=== PATIENT | male | born 1950 | race Caucasian/White ===

== ENCOUNTER 2019-08-02 19:48 | Emergency (ER) | payer MEDICARE ==
--- NOTE | 2019-08-02 22:08 | ULT ---
US Venous Doppler Lt Unilat HISTORY: Left leg pain and swelling. COMPARISON: None. FINDINGS: Real-time color Doppler evaluation left lower extremity was performed from groin to calf. T his includes evaluation the common femoral, superficial and profunda femoral, saphenous, popliteal and posterior tibial veins. This shows a patent deep venous system. There is normal compressibility and augmentation. IMPRESSION: No evidence of DVT of the left lower extremity.
== END 2019-08-02 22:10 | disposition home or self-care (01) ==
LOC: SCSER 19:48
DX: L03.116 Cellulitis of left lower limb (principal); I25.10 Atherosclerotic heart disease of native coronary artery without angina pectoris; F32.9 Major depressive disorder, single episode, unspecified; E78.5 Hyperlipidemia, unspecified; E78.00 Pure hypercholesterolemia, unspecified; E11.9 Type 2 diabetes mellitus without complications; I10 Essential (primary) hypertension; Z87.891 Personal history of nicotine dependence; Z79.82 Long term (current) use of aspirin; Z79.899 Other long term (current) drug therapy; Z79.01 Long term (current) use of anticoagulants

== ENCOUNTER 2020-04-29 08:45 | Outpatient (CLI) | payer MEDICARE, OTHER ==
[2020-04-29 12:07] LABS: #Eosinphils 0.1 thou/uL (0.0-0.7); #Lymphocytes 1.1 thou/uL (1.20-3.40); #Monocytes 0.5 thou/uL (0.11-0.59); #Neutrophils 3.6 thou/uL (1.40-6.50); %Basophils 0.2 % (0.0-1.0); %Eosinophils 1.3 % (0.0-10.0); %Lymphocytes 20.7 % (21.0-51.0); %Monocytes 9.2 % (0.0-10.0); %Neutrophils 68.5 % (42.0-75.0); Hemoglobin 13.8 g/dL (14.0-18.0); Mean Corpuscular HGB CONC 31.3 g/dL (32.0-36.0); Mean Corpuscular Hemoglobin 26.7 pg (27.0-31.0); Mean Corpuscular Volume 85.1 fL (78.0-98.0); Mean Platelet Volume 7.8 fL (7.4-10.4); Platelet Count 181 thou/uL (130-400); RBC Distribution Width 14.9 % (11.5-14.5); Red Blood Cell (RBC) Count 5.17 mill/uL (4.70-6.10); White Blood Cell (WBC) Count 5.2 thou/uL (4.8-10.8)
[2020-04-29 13:09] LABS: Anion Gap 13 mmol/L (10-20); BUN (Urea Nitrogen) 14 mg/dL (8.4-25.7); Calc. Creatinine Clearance 0 mL/min (70-130); Calcium 8.9 mg/dL (7.8-10.44); Carbon Dioxide 30 mmol/L (23-31); Chloride 101 mmol/L (98-107); Estimated GFR-MDRD 76; Glucose 100 mg/dL (80-115); Potassium 4.3 mmol/L (3.5-5.1); Sodium 140 mmol/L (136-145)
--- NOTE | 2020-05-03 17:22 | EKG ---
Test Reason : PREOP Blood Pressure : / mmHG Vent. Rate : 056 BPM Atrial Rate : 056 BPM P-R Int : 224 ms QRS Dur : 144 ms QT Int : 448 ms P-R-T Axes : 106 -48 -54 degrees QTc Int : 432 ms Unusual P axis, possible ectopic atrial bradycardia with 1st degree A-V block Right bundle branch block Left anterior fascicular block Bifascicular block T wave abnormality, consider inferior ischemia Abnormal ECG Confirmed by NOBLE JACKSON ([id number]) on 05/03/2020 5:22:32 PM Referred By: JUSTINE Confirmed By:NOBLE JACKSON
== END 2020-04-29 08:46 | disposition home or self-care (01) ==
LOC: SCSLAB 08:45
PROVIDERS: ATTEND Orthopaedic Surgery
DX: Z01.818 Encounter for other preprocedural examination (principal); Z11.59 Encounter for screening for other viral diseases; M20.42 Other hammer toe(s) (acquired), left foot
CPT/HCPCS: 80048; 85025; 93005; 93010

== ENCOUNTER 2021-02-01 10:02 | Outpatient (CLI) | payer MEDICARE | END 2021-02-01 10:03 | disposition home or self-care (01) | LOC: CTENTCT 10:02 | PROVIDERS: ATTEND Specialist | DX: J32.9 Chronic sinusitis, unspecified (principal) | CPT/HCPCS: 70486 ==

== ENCOUNTER 2021-03-24 10:14 | Outpatient (CLI) | payer MEDICARE | END 2021-03-24 10:15 | disposition home or self-care (01) | LOC: BICULT 10:14 | PROVIDERS: ATTEND Family Medicine | DX: I82.403 Acute embolism and thrombosis of unspecified deep veins of lower extremity, bilateral (principal) | CPT/HCPCS: 93970 ==

== ENCOUNTER 2021-07-07 | Outpatient (CLI) | payer MEDICARE | END 2021-07-07 13:24 | disposition home or self-care (01) ==

== ENCOUNTER 2025-05-08 14:53 | Outpatient (CLI) | payer OTHER ==
[2025-05-08 16:14] LABS: #Basophils Less than 0.03 10x3/uL (0.0-0.2); #Eosinophils 0.08 10x3/uL (0.0-0.7); #Neutrophils 2.85 10x3/uL (1.40-6.50); %Basophils 0.4 % (0.0-1.0); %Eosinophils 1.5 % (0.0-10.0); %Lymphocytes 34.9 % (21.0-51.0); %Monocytes 10.9 % (0.0-10.0); %Neutrophils 51.9 % (42.0-75.0); Hematocrit 42.4 % (42.0-52.0); Hemoglobin 14.5 g/dL (14.0-18.0); Mean Corpuscular HGB CONC 34.2 g/dL (32.0-36.0); Mean Corpuscular Hemoglobin 29.6 pg (27.0-31.0); Mean Corpuscular Volume 86.5 fL (78.0-98.0); Mean Platelet Volume 9.7 fL (7.4-10.4); Platelet Count 174 10x3/uL (130-400); RBC Distribution Width 12.5 % (11.5-14.5); White Blood Cell (WBC) Count 5.48 10x3/uL (4.8-10.8)
[2025-05-08 16:17] LABS: ALT (SGPT) 11 U/L (Less than 45); AST (SGOT) 13 U/L (11-34); Albumin 3.8 g/dL (3.1-4.5); Alkaline Phosphatase 78 U/L (40-110); Anion Gap 13 mmol/L (10-20); BUN (Urea Nitrogen) 13 mg/dL (8.4-25.7); Bilirubin, Total 0.5 mg/dL (0.3-1.2); Calc. Creatinine Clearance 0 mL/min (70-130); Calcium 9.1 mg/dL (7.8-10.44); Carbon Dioxide 33 mmol/L (23-31); Chloride 96 mmol/L (98-107); Estimated GFR 75; Globulin 3.2 g/dL (2.4-3.5); Glucose 234 mg/dL (83-110); Potassium 3.9 mmol/L (3.5-5.1); Sodium 138 mmol/L (136-145)
== END 2025-05-08 14:54 | disposition home or self-care (01) ==
LOC: LABBT 14:53
PROVIDERS: ATTEND Internal Medicine Cardiovascular Disease
DX: Z01.812 Encounter for preprocedural laboratory examination (principal); R94.39 Abnormal result of other cardiovascular function study
CPT/HCPCS: 80053; 85025

== ENCOUNTER 2025-07-24 10:02 | Outpatient (CLI) | payer OTHER | END 2025-07-24 10:03 | disposition home or self-care (01) | LOC: BICRAD 10:02 | PROVIDERS: ATTEND Urology | DX: N20.0 Calculus of kidney (principal); E11.9 Type 2 diabetes mellitus without complications; N40.1 Benign prostatic hyperplasia with lower urinary tract symptoms | CPT/HCPCS: 36415; 74018; 80048; 81001; 83036; 87086 ==

== ENCOUNTER 2025-08-13 11:53 | Outpatient (CLI) | payer OTHER ==
[2025-08-13 13:01] LABS: #Basophils 0.03 10x3/uL (0.0-0.2); #Eosinophils 0.09 10x3/uL (0.0-0.7); #Monocytes 0.56 10x3/uL (0.11-0.59); #Neutrophils 3.57 10x3/uL (1.40-6.50); %Basophils 0.5 % (0.0-1.0); %Eosinophils 1.5 % (0.0-10.0); %Lymphocytes 26.9 % (21.0-51.0); %Monocytes 9.6 % (0.0-10.0); %Neutrophils 61.3 % (42.0-75.0); Hematocrit 39.1 % (42.0-52.0); Hemoglobin 12.6 g/dL (14.0-18.0); Mean Corpuscular Hemoglobin 29.0 pg (27.0-31.0); Mean Corpuscular Volume 90.1 fL (78.0-98.0); Platelet Count 166 10x3/uL (130-400); Red Blood Cell (RBC) Count 4.34 mill/uL (4.70-6.10); White Blood Cell (WBC) Count 5.83 10x3/uL (4.8-10.8)
[2025-08-13 13:15] LABS: Anion Gap 11 mmol/L (10-20); BUN (Urea Nitrogen) 15 mg/dL (8.4-25.7); Calc. Creatinine Clearance 0 mL/min (70-130); Calcium 8.9 mg/dL (7.8-10.44); Carbon Dioxide 32 mmol/L (23-31); Chloride 98 mmol/L (98-107); Glucose 233 mg/dL (83-110); Potassium 4.1 mmol/L (3.5-5.1); Sodium 137 mmol/L (136-145)
[2025-08-13 13:39] LABS: Bacteria/HPF None Seen HPF (None Seen); Glucose, Urine (Dipstick) Greater than 1000 mg/dL (Negative); Leukocyte Negative Leu/uL (Negative); Protein, Urine (Dipstick) Negative (Neg-Trace); Specific Gravity, Urine 1.025 (1.002-1.036); WBC/HPF 0-3 HPF (0-3)
[2025-08-13 13:40] LABS: INR-International Normal Ratio 1.1; Prothrombin Time 14.7 sec (12.0-14.7)
[2025-08-13 13:42] LABS: PTT 27.3 sec (22.9-36.1)
== END 2025-08-13 11:54 | disposition home or self-care (01) ==
LOC: LABBT 11:53
PROVIDERS: ATTEND Urology
DX: Z01.818 Encounter for other preprocedural examination (principal); N20.0 Calculus of kidney; N40.1 Benign prostatic hyperplasia with lower urinary tract symptoms; R35.0 Frequency of micturition; R31.9 Hematuria, unspecified; N28.89 Other specified disorders of kidney and ureter
CPT/HCPCS: 80048; 85025; 85610; 85730; 87086; 93005; 93010